=== PATIENT | female | born 1985 | race Caucasian/White ===

== ENCOUNTER → 2017-04-07 | Day surgery (SDC) | payer BC ==
[~2017-04-07] MED LIST: NO MEDICATIONS
--- NOTE | ~2017-04-07 | OR ---
Unit #: [id number] #: [id number] Patient: MARILEE NAIK [id number] [address] [place], [place] [address] [id number] O MR#: [id number] NAME: MARILEE NAIK ROOM: Date of Procedure: 04/07/2017 Admission Date: 04/07/2017 Surgeon: Paco Queen M.D. : 1985 Attending Physician: Paco Queen M.D. Referring Physician: Paco Queen M.D. Primary Care Physician: Primary Care Physician No OPERATIVE REPORT PREOPERATIVE DIAGNOSES The patient had history of common bile duct stones and placement of a biliary stent, status post laparoscopic cholecystectomy. She had a stent in place more than a year. In fact, she did not follow up as she had delivered a baby and subsequently had another baby at a shorter interval and said she was quite busy with the family. She had five children. PROCEDURES PERFORMED 1. Endoscopic retrograde cholangiopancreatography and stent removal. 2. Endoscopic retrograde cholangiopancreatography and stone removal. POSTOPERATIVE DIAGNOSES 1. The previously placed biliary stent was in place and was removed. 2. The common bile duct had multiple small and one large stone. These were removed after extension of sphincterotomy and balloon sweep of the duct and these were delivered into the duodenum. A normal occlusion cholangiogram with excellent biliary drainage was demonstrated towards the end of the procedure. RECOMMENDATIONS The patient was discharged after reassurance. She will follow up on an as needed basis. SEDATION USED MAC. DESCRIPTION OF PROCEDURE Following detailed explanation of the potential risks and complications of an ERCP, namely perforation, bleeding, complication related to sedation, and pancreatitis, the patient was brought to GI lab and laid in the left semiprone position. Sedation using MAC was given. Lateral-viewing duodenoscope was advanced through the oral cavity into the esophagus and advanced into the stomach. Pylorus was intubated with visualization of the normal duodenal bulb and second and third part of the duodenum. Pylorus was intubated in the usual fashion. The scope was advanced in deep descending duodenum. Upon shortening the scope, major papilla and ampullary area was visualized en face. The previously placed biliary stent was seen in normal position. It was removed using polypectomy snare and delivered outside. The patient was then reintubated through the previous sphincterotomy site. A guidewire was introduced into the common bile duct. Contrast cholangiogram showed multiple filling defects in the common bile duct and the duct was dilated to about 12 to 13 mm. Unit #: [id number] #: [id number] Patient: MARILEE NAIK Therefore, we extended the sphincterotomy and the duct was then swept with a 9 to 12 mm retrieval balloon at 12 mm settings. Multiple small stones and debris were delivered followed by a large single pigmented stone. Complete clearance of common bile duct was achieved with excellent drainage of the bile. The scope and the accessories were then withdrawn. The patient returned to recovery area. She tolerated the procedure without any postprocedure complications. Dictated by... Debbei Mcclendon/gato TD: 04/07/2017 17:24 JOB #: [id number] OPERATIVE REPORT Page 1 of 1 X Paco Queen MD X PROCEDURE OPERATIVE NOTE
--- NOTE | ~2017-04-07 | CR84 ---
[facility] A Service of [facility] RADIOLOGY TEXT RESULTS PATIENT: MARILEE NAIK LOCATION: [facility] : 85 UNIT #: [id number] AGE: [address]: Paco Queen MD SEX: F ORDER DR: [id number] [facility] [address] [place], [place] [address] [id number] O MR#: [id number] Acc #: [id number] NAME: MARILEE NAIK : 1985 SEX: F STUDY DATE/TIME: 04/07/2017 12:24 UNIT: [facility] ROOM: STUDY DESCRIPTION: CR ERCP Biliary and Pancr SI Attending Physician: Paco Queen M.D. Referring Physician: Paco Queen M.D. Ordering Physician: Paco Queen M.D. Primary Care Physician: Primary Care Physician No MEDICAL IMAGING REPORT This report is preliminary unless electronic signature is present EXAM ERCP 04/07/2017 HISTORY ERCP performed for a common bile duct stent and stone removal. FINDINGS ERCP was performed by Dr. Queen. 4 spot film radiographs of the upper abdomen were obtained and 58 seconds of fluoroscopy time was utilized. Surgical clips are seen in the right upper quadrant from prior cholecystectomy. Injection of the pancreatic duct was not attempted. Injection of the biliary tree shows dilatation of the common bile duct with filling defects characteristic of stones in the common duct. Normal contrast drainage was seen into the duodenum and the distal aspect of the common bile duct near the sphincter of Oddi was normal. The common bile duct stent was removed. Balloon catheter was used to remove stones from the common duct. Dictated by... Lenin Ball M.D. THIS IS AN ELECTRONICALLY VERIFIED REPORT Lenin Ball M.D. at 04/09/2017 10:17 AM SAROJ/nikita TD: 04/08/2017 12:31 JOB #: [id number] MEDICAL IMAGING REPORT Page 1 of 1 COPY
== END | disposition home or self-care (01) ==
LOC: COPS 11:19
DX: K80.50 Calculus of bile duct without cholangitis or cholecystitis without obstruction (principal); F17.210 Nicotine dependence, cigarettes, uncomplicated; Z87.442 Personal history of urinary calculi; Z98.890 Other specified postprocedural states; Z90.49 Acquired absence of other specified parts of digestive tract
CPT/HCPCS: 74330; 84703; J2250